=== PATIENT | female | born 1955 | race Hispanic/Latino ===

== ENCOUNTER 2023-03-18 08:43 | Emergency (ER) | payer MEDICARE ==
[~2023-03-18] VITALS: Ht 160 cm; Wt 69.4 kg
[2023-03-18] MEDS ORDERED: ACETAMINOPHEN WITH CODEINE 1 TAB TAB PO ONE (09:00)
[2023-03-18 10:05] VITALS: BP 177/69; PULSE 76; RESP 17; O2SAT 99
== END 2023-03-18 10:05 | disposition home or self-care (01) ==
LOC: EDH 08:43
DX: S70.02XA Contusion of left hip, initial encounter (principal); E11.9 Type 2 diabetes mellitus without complications; E78.00 Pure hypercholesterolemia, unspecified; I10 Essential (primary) hypertension; Z95.1 Presence of aortocoronary bypass graft; W18.39XA Other fall on same level, initial encounter; Y93.89 Activity, other specified; Y92.89 Other specified places as the place of occurrence of the external cause; Y99.8 Other external cause status
CPT/HCPCS: 73502